=== PATIENT | female | born 1960 | race Caucasian/White ===

== ENCOUNTER → 2016-04-10 | Outpatient (REF) | payer BC | LOC: M LAB REF 12:24 | PROVIDERS: ATTEND Ophthalmology | DX: H02.834 Dermatochalasis of left upper eyelid (principal) ==

== ENCOUNTER 2017-05-26 09:03 | Day surgery (SDC) | payer BC ==
[2017-05-26] MEDS: NS 1,000 ML IV (09:22)
[2017-05-26] MEDS ORDERED: fentaNYL 100 MCG/2 ML INJECTION (J3010) As Ordered (09:58)
[2017-05-26] MEDS ORDERED: LIDOCAINE 2% INJ 100 MG/5 ML SDV (FOR ANES.) As Ordered (10:18)
[2017-05-26] MEDS ORDERED: PROPOFOL 200 MG/20 ML VIAL As Ordered ×2 (10:18→10:19)
== END 2017-05-26 11:26 | disposition home or self-care (01) ==
LOC: M OPP 09:03
DX: Z12.11 Encounter for screening for malignant neoplasm of colon (principal); D12.4 Benign neoplasm of descending colon; K64.0 First degree hemorrhoids; K57.30 Diverticulosis of large intestine without perforation or abscess without bleeding; R12 Heartburn; K31.89 Other diseases of stomach and duodenum; K21.9 Gastro-esophageal reflux disease without esophagitis; K58.9 Irritable bowel syndrome, unspecified; E27.1 Primary adrenocortical insufficiency; E78.5 Hyperlipidemia, unspecified; F17.210 Nicotine dependence, cigarettes, uncomplicated; Z87.19 Personal history of other diseases of the digestive system; Z88.5 Allergy status to narcotic agent; Z79.899 Other long term (current) drug therapy
CPT/HCPCS: 45380

== ENCOUNTER → 2018-01-10 | Outpatient (REF) | payer BC ==
[2018-01-10 19:06] LABS: APPEARANCE, URINE CLEAR (CLEAR); BACTERIA, URINE AUTO 1+ (NEGATIVE); BILIRUBIN, URINE AUTO NEGATIVE (NEGATIVE); BLOOD, URINE BLOOD 1+ (NEGATIVE); COLOR, URINE STRAW (YELLOW); GLUCOSE, URINE (UA) AUTO NEGATIVE (NEGATIVE); KETONE, URINE AUTO NEGATIVE (NEGATIVE); LEUKOCYTE ESTERASE, URINE AUTO 1+ (NEGATIVE); NITRITE, URINE AUTO NEGATIVE (NEGATIVE); PROTEIN, URINE AUTO NEGATIVE (NEGATIVE); RBC, URINE AUTO 8 /HPF (0-3); SPECIFIC GRAVITY URINE AUTO 1.011 (1.002-1.035); SQUAMOUS EPITHELIAL CELL UR AU 0 /HPF (0-6); UROBILINOGEN, URINE AUTO 0.2 mg/dL (0.0-2.0); WBC, URINE AUTO 0 /HPF (0-3)
== END ==
LOC: M LAB REF 16:25
DX: R35.1 Nocturia (principal)
CPT/HCPCS: 81001

== ENCOUNTER → 2018-01-14 | Outpatient (CLI) | payer BC ==
[2018-01-14 12:12] LABS: BASO # 0.1 10^3/uL (0.0-0.2); BASO % 0.4 % (0.0-1.0); EOS # 0.7 10^3/uL (0.0-0.50); EOS % 5.5 % (0.0-3.0); HEMATOCRIT 46.9 % (36.0-47.0); HEMOGLOBIN 16.1 g/dl (12.0-15.5); IMMATURE GRANULOCYTE % 0.3 % (0-3.0); LYMPH # 1.1 10^3/uL (1.5-4.5); LYMPH % 8.6 % (24.0-44.0); MEAN CORPUSCULAR HEMOGLOBIN 30.1 pg (27.0-33.0); MEAN CORPUSCULAR HGB CONC 34.3 g/dl (32.0-36.5); MEAN CORPUSCULAR VOLUME 87.7 fl (80.0-96.0); MONO # 0.6 10^3/uL (0.0-0.8); MONO % 4.3 % (0.0-5.0); NEUTROPHILS # 10.4 10^3/uL (1.8-7.7); NEUTROPHILS % 80.9 % (36.0-66.0); PLATELET COUNT, AUTOMATED 261 10^3/uL (150-450); RED BLOOD COUNT 5.35 10^6/uL (4.00-5.40); RED CELL DISTRIBUTION WIDTH 13.3 % (11.5-14.5); WHITE BLOOD COUNT 12.8 10^3/uL (4.0-10.0)
[2018-01-14 16:04] LABS: ALBUMIN 3.9 GM/DL (3.2-5.2); ALBUMIN/GLOBULIN RATIO 1.22 (1.00-1.93); ALKALINE PHOSPHATASE 140 U/L (45-117); ALT/SGPT 52 U/L (12-78); ANION GAP 13 MEQ/L (8-16); AST/SGOT 34 U/L (7-37); BILIRUBIN,TOTAL 0.5 MG/DL (0.2-1.0); BLOOD UREA NITROGEN 12 MG/DL (7-18); CALCIUM LEVEL 9.1 MG/DL (8.5-10.1); CARBON DIOXIDE LEVEL 22 MEQ/L (21-32); CHLORIDE LEVEL 102 MEQ/L (98-107); CORTISOL AM 4.5 UG/DL (4.3-22.4); CREATININE FOR GFR 0.79 MG/DL (0.55-1.30); FREE T3 3.3 PG/ML (2.2-4.0); FREE T4 1.51 NG/DL (0.76-1.46); GLOMERULAR FILTRATION RATE > 60.0 (>51); GLUCOSE, FASTING 115 MG/DL (70-100); IRON (FE) 53 UG/DL (50-170); POTASSIUM SERUM 4.1 MEQ/L (3.5-5.1); SODIUM LEVEL 137 MEQ/L (136-145); THYROID STIMULATING HORMONE 0.143 uIU/ML (0.358-3.740); TOTAL 25(OH) VITAMIN D 17.9 NG/ML (30.0-100.0); TOTAL PROTEIN 7.1 GM/DL (6.4-8.2)
== END ==
LOC: M LAB 11:21
DX: N39.9 Disorder of urinary system, unspecified (principal); E27.49 Other adrenocortical insufficiency; R53.1 Weakness; E03.9 Hypothyroidism, unspecified
CPT/HCPCS: 83540

== ENCOUNTER → 2018-05-03 | Outpatient (CLI) | payer BC ==
[~2018-05-03] MED LIST: ATOR1TAB21 PO; FLUD0.1T PO; HYDR-3291 PO; LEVO100T5 PO; OMEP10CASR PO; SYNT125T PO
--- NOTE | 2018-05-03 15:50 | ECGEPIP ---
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
== END ==
LOC: M EKG 12:18
PROVIDERS: ATTEND Nurse Practitioner Family
DX: Z01.810 Encounter for preprocedural cardiovascular examination (principal); R00.1 Bradycardia, unspecified

== ENCOUNTER 2018-05-10 07:34 | Day surgery (SDC) | payer BC ==
[~2018-05-10] VITALS: Ht 160 cm; Wt 70.2 kg
[~2018-05-10 07:34] MED LIST changes: +LR 1,000 ML IV ONE
[2018-05-10] MEDS ORDERED: LIDOCAINE 2% INJ 100 MG/5 ML SDV (FOR ANES.) As Ordered ONE (08:06)
[2018-05-10] MEDS ORDERED: PROPOFOL 200 MG/20 ML VIAL As Ordered ONE (08:06)
[2018-05-10] MEDS ORDERED: ROCURONIUM BROMIDE 50 MG/5 ML VIAL As Ordered ONE (08:06)
[2018-05-10] MEDS ORDERED: dexameTHASONE 4 MG/ML 1ML VIAL (J1100) As Ordered ONE (08:07)
[2018-05-10] MEDS ORDERED: fentaNYL 250 MCG/5 ML INJECTION (J3010) As Ordered ONE (08:07)
[2018-05-10] MEDS ORDERED: ONDANSETRON 4MG/2ML VIAL (J2405) As Ordered ONE (08:07)
[2018-05-10] MEDS ORDERED: MIDAZOLAM INJ 2 MG/2 ML VIAL (J2250) As Ordered ONE (08:07)
[2018-05-10] MEDS ORDERED: KETOROLAC 60 MG/2 ML VIAL (J1885) As Ordered ONE (08:07)
[2018-05-10] MEDS ORDERED: VASOPRESSIN INJ 20 UNITS/ML VIAL As Ordered ONE (09:47)
[2018-05-10] MEDS ORDERED: SCOPOLAMINE 1MG TRANSDERMAL PATCH As Ordered ONE (10:00)
[2018-05-10] MEDS ORDERED: ePHEDrine SULFATE 25 MG/5 ML(5MG/ML) SYRINGE As Ordered ONE (11:03)
[2018-05-10] MEDS ORDERED: PHENYLephrine HCL 500 MCG/5 ML (100MCG/ML) SYRINGE (J2370) As Ordered ONE (11:03)
[2018-05-10] MEDS: fentaNYL 100 MCG/2 ML INJECTION (J3010) IV PRN ×4 (11:30→11:47)
[2018-05-10] MEDS: PERCOCET 5MG/325MG TAB PO PRN ×2 (11:30→12:00)
[2018-05-10] MEDS ORDERED: PERCOCET 5MG/325MG TAB As Ordered ONE ×2 (11:31→11:57)
[2018-05-10] MEDS ORDERED: fentaNYL 100 MCG/2 ML INJECTION (J3010) As Ordered ONE (11:31)
[2018-05-10] MEDS ORDERED: LR 1,000 ML IV SCH (12:00)
[2018-05-10] MEDS ORDERED: HYDROMORPHONE HCL 0.5 MG/ 0.5 ML SYRINGE (J1170 PER 1) IV PRN (12:00)
[2018-05-10] MEDS ORDERED: NORCO, ANEXSIA 5/325MG TABLET (HYDROcodone/ACETAMINOPHEN) PO PRN (12:15)
[2018-05-10] MEDS ORDERED: IBUPROFEN 600 MG TAB PO PRN (12:15)
[2018-05-10 13:15] VITALS: BP 104/63
--- NOTE | 2018-05-11 11:16 | RO ---
DATE OF PROCEDURE: 05/10/2018 PREPROCEDURE DIAGNOSES: Symptomatic exposed mesh in two locations and overactive bladder symptoms. POSTPROCEDURE DIAGNOSES: Symptomatic exposed mesh in two locations and overactive bladder symptoms with suspicion of interstitial cystitis based on cystoscopy findings. PROCEDURE: Removal of two portions of exposed vaginal mesh by vaginal approach and cystourethroscopy. SURGEON: Dr. Sumi Cartagena RESERVOIR ENGINEERING ADVISOR: ANESTHESIA: General anesthesia by LMA. ESTIMATED BLOOD LOSS: BRIEF DESCRIPTION OF PROCEDURE AND FINDINGS: Denia was brought to the operating room where sufficient anesthesia was induced. She was prepped, draped and positioned in the usual sterile fashion with the bladder emptied and then the Ruperto retractor used to visualize the vagina. We did not use a weighted in this case. We did not want to put any extra tension on the tissues. We carefully visualized the two areas of exposed mesh. One was the upper anterior vagina and one was more or less at the apex of the vagina just shy of that and extending to the apex. We were able to palpate the mesh itself and grasp it with Allis clamps and then using a couple Allis clamps on the exposed mesh portion, we carefully trimmed back the vaginal epithelium and were able to then undermine it and trim the exposed mesh and remove the exposed mesh portion. There is a viable area of vaginal epithelium in-between the two exposure sites and we had made a conscious discussion and decision in the office to go ahead and just remove the exposed mesh and not disrupt any intact normal vaginal tissue if we could avoid it as we were readily able to do this. The tissues show some evidence the patient has been using her vaginal estrogen. With the exception of the inflammation right around the exposures, there is very good looking tissue there. We did resect back just the edges of those wounds because of course they needed to be refreshed but we did not need to trim back very much and we were able to undermine and then remove the mesh so it is well away from the area of the wound, and having removed the more cephalad area of mesh, we then worked on the more caudad area and then we were able to remove it too, and with the two areas of mesh exposed and excised and well back in some areas as much as 1 cm back from the skin edge but not as far in that medial section of vaginal epithelium that is still viable. I removed those areas of mesh. We when used #3-0 Monocryl in running stitches to close the two wounds. We did not have to hydrodissect. We made a conscious choice in this case not to use vasopressin. We did not want to disrupt any of the blood supply to these tissues and we were able to get purchase onto the actual mesh to dissect along it which gave us a good plane. With the two vaginal wounds closed and good approximation and hemostasis there without undue tension, we then proceeded to the cystourethroscopy. First scope we placed actually was not in good shape. The first picture shows how dim it was, just was not letting the light through so we went ahead and changed out for a new scope and having done so had a much better picture of the bladder. We were able to see normal jets of urine from both ureters, a normal trigone. She did not have any vaginal lesions. There was no evidence of vaginal mesh. With filling of the bladder, we did have a couple of areas sort of hypervascularity and vascular hemorrhage and this is not with a large amount of fluid in the bladder, so I really think this patient has some evidence of interstitial cystitis based on these findings. There is definitely no lesion and there was the typical inflammation one sees with a stone and chronic infection or chronic urinary tract infection (UTI) so I do not think that it is what it is. I think she does have interstitial cystis, but of course this visual appearance is not diagnostic. I did not see any William's lesions or anything that really would be pathognomonic, just that is my clinical impression. I also did not see any exposed mesh in the bladder. We were very careful to do a 360 survey of the bladder and of the urethra and saw no evidence of bladder mesh injury or difficulty and after this, the bladder was emptied and the procedure was ended. ESTIMATED BLOOD LOSS FOR THE PROCEDURE: 4 mL or less. FLUID REPLACEMENT: Crystalloid. COMPLICATIONS: None. SPECIMEN: We did send to two portions of mesh and those tiny areas of vaginal epithelium that we trimmed back we did not send. There did not appear to be any lesions there. There were no other specimen because we did not need to biopsy the bladder. CONDITION AND DISPOSITION: Denia tolerated the procedure well and was recovering in the recovery room in good condition.
== END 2018-05-10 13:25 | disposition home or self-care (01) ==
LOC: M SDC 07:34
PROVIDERS: ATTEND Obstetrics & Gynecology
DX: T83.721A Exposure of implanted vaginal mesh into vagina, initial encounter (principal); X58.XXXA Exposure to other specified factors, initial encounter; Y93.9 Activity, unspecified; Y92.9 Unspecified place or not applicable; Y99.9 Unspecified external cause status; E03.9 Hypothyroidism, unspecified; E27.2 Addisonian crisis; E78.00 Pure hypercholesterolemia, unspecified; K22.70 Barrett's esophagus without dysplasia; Z88.5 Allergy status to narcotic agent; Z79.899 Other long term (current) drug therapy; Z72.0 Tobacco use
CPT/HCPCS: 52000; 57295; 88300; J0690; J1100; J1885; J2250; J2370; J2405; J3010

== ENCOUNTER → 2018-08-05 | Outpatient (CLI) | payer BC ==
[~2018-08-05] MED LIST changes: -HYDR-3291 PO; +HYDR-4513 PO; -LR 1,000 ML IV ONE
--- NOTE | 2018-08-06 08:38 | REP ---
HISTORY: Pain. COMPARISON: None. There is minimal tricompartmental marginal osteophytosis. There is slight medial compartmental narrowing with asymmetric narrowing of the patellofemoral joint space. Calcifications are seen in the distal quadriceps tendon at the patellar attachment and within the proximal patellar tendon at its patellar attachment. This is suggestive of an enthesopathy. IMPRESSION: Chronic changes as described above. Electronically Signed by Anthony Beasley DO 08/06/2018 08:45 A
== END ==
LOC: M WUC 19:25
PROVIDERS: ATTEND Physician Assistant
DX: M25.761 Osteophyte, right knee (principal); M25.561 Pain in right knee

== ENCOUNTER → 2018-09-22 | Outpatient (CLI) | payer BC ==
[2018-09-22 13:44] LABS: HEMOGLOBIN 14.5 g/dl (12.0-15.5); MEAN CORPUSCULAR HEMOGLOBIN 30.7 pg (27.0-33.0); MEAN CORPUSCULAR VOLUME 93.2 fl (80.0-96.0); PLATELET COUNT, AUTOMATED 222 10^3/uL (150-450); RED BLOOD COUNT 4.72 10^6/uL (4.00-5.40)
[2018-09-22 14:09] LABS: ALBUMIN 3.9 GM/DL (3.2-5.2); ALT/SGPT 61 U/L (12-78); BILIRUBIN,TOTAL 0.3 MG/DL (0.2-1.0); BLOOD UREA NITROGEN 16 MG/DL (7-18); CARBON DIOXIDE LEVEL 26 MEQ/L (21-32); CHLORIDE LEVEL 106 MEQ/L (98-107); CREATININE FOR GFR 0.87 MG/DL (0.55-1.30); FREE T3 2.7 PG/ML (2.2-4.0); FREE T4 1.23 NG/DL (0.76-1.46); GLOMERULAR FILTRATION RATE > 60.0 (>51); GLUCOSE, FASTING 94 MG/DL (70-100); SODIUM LEVEL 140 MEQ/L (136-145); THYROID STIMULATING HORMONE 0.547 uIU/ML (0.358-3.740); TOTAL PROTEIN 6.7 GM/DL (6.4-8.2)
== END ==
LOC: M LAB 13:16
PROVIDERS: ATTEND Nurse Practitioner Family
DX: Z01.818 Encounter for other preprocedural examination (principal); E03.9 Hypothyroidism, unspecified

== ENCOUNTER 2018-09-27 14:00 | Emergency (ER) | payer BC ==
[~2018-09-27] VITALS: Ht 160 cm; Wt 71.4 kg
[2018-09-27] MEDS ORDERED: NS 1,000 ML IV SCH (15:35)
[2018-09-27 15:44] LABS: BASO % 0.1 % (0.0-1.0); EOS % 0.1 % (0.0-3.0); HEMATOCRIT 43.2 % (36.0-47.0); LYMPH # 0.9 10^3/uL (1.5-4.5); LYMPH % 9.4 % (24.0-44.0); MEAN CORPUSCULAR HEMOGLOBIN 30.5 pg (27.0-33.0); MEAN CORPUSCULAR HGB CONC 32.4 g/dl (32.0-36.5); MEAN CORPUSCULAR VOLUME 94.1 fl (80.0-96.0); MONO # 0.1 10^3/uL (0.0-0.8); MONO % 0.8 % (0.0-5.0); NEUTROPHILS # 8.5 10^3/uL (1.8-7.7); NEUTROPHILS % 89.2 % (36.0-66.0); PLATELET COUNT, AUTOMATED 177 10^3/uL (150-450); RED BLOOD COUNT 4.59 10^6/uL (4.00-5.40); WHITE BLOOD COUNT 9.5 10^3/uL (4.0-10.0)
[2018-09-27] MEDS ORDERED: IPRATROPIUM 0.5MG/ALBUTEROL 2.5MG INH SOL UD 3ML (DUONEB)(J7620) NEB ONE (15:45)
[2018-09-27 15:57] LABS: INR 0.98; PROTHROMBIN TIME 12.7 SECONDS (11.8-14.0)
[2018-09-27 15:59] LABS: D-DIMER QUANT 347.28 ng/ml (<500)
[2018-09-27 16:01] LABS: ALBUMIN 3.6 GM/DL (3.2-5.2); ALT/SGPT 68 U/L (12-78); BILIRUBIN,DIRECT 0.1 MG/DL (0.0-0.2); BILIRUBIN,TOTAL 0.6 MG/DL (0.2-1.0); BLOOD UREA NITROGEN 13 MG/DL (7-18); CALCIUM LEVEL 8.1 MG/DL (8.5-10.1); CARBON DIOXIDE LEVEL 26 MEQ/L (21-32); CHLORIDE LEVEL 107 MEQ/L (98-107); CK-MB VALUE MASS 1.6 NG/ML (<3.6); CPK CREATINE PHOSPHOKINASE 110 U/L (26-192); CREATININE FOR GFR 0.77 MG/DL (0.55-1.30); GLOMERULAR FILTRATION RATE > 60.0 (>51); GLUCOSE, FASTING 75 MG/DL (70-100); MB/CK RELATIVE INDEX 1.45 (< OR =4); NT-PRO BNP 61 PG/ML (<125); POTASSIUM SERUM 3.9 MEQ/L (3.5-5.1); SODIUM LEVEL 141 MEQ/L (136-145); TOTAL PROTEIN 6.1 GM/DL (6.4-8.2); TROPONIN I < 0.02 NG/ML (< 0.10)
[2018-09-27 16:12] LABS: VENOUS BASE EXCESS 0.3 (-2.0-2.0); VENOUS PARTIAL PRESSURE CO2 46.3 mmHg (38.0-50.0); VENOUS PARTIAL PRESSURE O2 31.2 mmHg (30.0-50.0); VENOUS PH 7.368 UNITS (7.330-7.430); VENOUS STANDARD HCO3 23.7 MEQ/L; VENOUS TOTAL CO2 27.5 MEQ/L (24.0-28.0)
--- NOTE | 2018-09-27 16:44 | REP ---
Chest x-ray: Two views. History: Dyspnea and cough. No comparison study. Findings: The lungs are symmetrically aerated and free of focal infiltrate. Heart is not enlarged. Pulmonary vasculature is not increased. Interstitial markings are somewhat prominent however diffusely and there are Trey B lines visible in the left base laterally. EKG electrodes and oxygen delivery tubing are seen. Slight fissural thickening is noted. Impression: Prominent interstitial pattern diffusely with Trey B lines. Normal heart size. Mild fissural thickening. No focal infiltrate. Electronically Signed by Angelo Mallory MD 09/27/2018 04:59 P
[2018-09-27 18:00] VITALS: BP 96/54
[2018-09-27] MEDS ORDERED: ACETAMINOPHEN 325 MG TAB PO ONE (18:00)
--- NOTE | 2018-09-28 03:37 | ECGEPIP ---
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
== END 2018-09-27 18:12 | disposition home or self-care (01) ==
LOC: EDBD 14:00 → M ED 14:00
DX: R06.02 Shortness of breath (principal); R53.81 Other malaise; R53.83 Other fatigue; E07.9 Disorder of thyroid, unspecified; K21.9 Gastro-esophageal reflux disease without esophagitis; Z86.711 Personal history of pulmonary embolism; Z79.899 Other long term (current) drug therapy; Z88.8 Allergy status to other drugs, medicaments and biological substances; F17.210 Nicotine dependence, cigarettes, uncomplicated

== ENCOUNTER → 2019-12-27 | Outpatient (CLI) | payer BC ==
[~2019-12-27] MED LIST changes: +HYDR-4468 PO; -HYDR-4513 PO
--- NOTE | 2020-01-01 10:55 | REP ---
RIGHT RIB SERIES HISTORY: Contusion. Anterior pain mid thorax. TECHNIQUE: Four views of the right ribs are performed. FINDINGS: No fracture or bone lesion is seen. A PA view of the chest demonstrates no acute infiltrate, pneumothorax, or pleural effusion. Heart and mediastinum are within normal limits. IMPRESSION: Negative right rib series. MTDD
== END ==
LOC: M WUC 16:42
PROVIDERS: ATTEND Physician Assistant
DX: S20.20XA Contusion of thorax, unspecified, initial encounter (principal); Z72.0 Tobacco use; X58.XXXA Exposure to other specified factors, initial encounter; Y92.9 Unspecified place or not applicable

== ENCOUNTER → 2020-07-22 | Outpatient (CLI) | payer BC ==
--- NOTE | 2020-07-22 14:05 | REP ---
INDICATION: CONTUSION. COMPARISON: Comparison radiographs of the left hip are from 20 Jul 2014.. TECHNIQUE: AP and frogleg views, three views presented. FINDINGS: There is [id number] femoroacetabular spurring consistent with osteoarthritis. There is tendon insertion site spurring on the greater trochanter and on the iliac crest. Femoral head is smooth and rounded. Mild superior joint space narrowing is seen. Radiographically, the findings are unchanged. IMPRESSION: Left hip osteoarthritis. Findings similar to the 2014 study. Some tendon insertion site spurring is also present. <Electronically signed by Ezra Mallory > 07/22/20 1211
--- NOTE | 2020-07-22 21:00 | REP ---
INDICATION: CONTUSION COMPARISON: None. TECHNIQUE: Frontal view of the chest with multiple views of the left hemithorax. FINDINGS: Frontal view of the chest demonstrates no acute cardiopulmonary process, contusion, effusion, or pneumothorax. Multiple views of the left hemithorax demonstrates no acute rib fracture/injury or pathology. IMPRESSION: Normal rib series. <Electronically signed by Jarrett Saldana > 07/22/20 1063
--- NOTE | 2020-07-22 21:10 | REP ---
INDICATION: CONTUSION COMPARISON: None. TECHNIQUE: AP, lateral, bilateral oblique views of the left elbow elbow. FINDINGS: [id number] degenerative changes are appreciated with subtle cortical irregularity and early spurring primarily involving the coronoid process and lateral humeral condyle. No acute fracture or dislocation. Anterior fat pad is normal in position without joint effusion. IMPRESSION: Degenerative changes. No evidence for acute fracture or dislocation. <Electronically signed by Jarrett Saldana > 07/22/20 1010
== END ==
LOC: M WUC 13:01
PROVIDERS: ATTEND Physician Assistant
DX: S20.212A Contusion of left front wall of thorax, initial encounter (principal); S50.02XA Contusion of left elbow, initial encounter; S70.02XA Contusion of left hip, initial encounter; X58.XXXA Exposure to other specified factors, initial encounter; Y92.9 Unspecified place or not applicable; M81.0 Age-related osteoporosis without current pathological fracture; M25.752 Osteophyte, left hip

== ENCOUNTER → 2020-08-19 | Outpatient (CLI) | payer BC ==
--- NOTE | 2020-08-19 11:20 | REP ---
INDICATION: PAIN COMPARISON: None. TECHNIQUE: AP and frog-lateral views of the left hip FINDINGS: Age-related changes include increased sclerosis to the acetabulum with joint space narrowing and marginal spurring/early osteophyte formation including small osteophyte along the inferior margin of the femoral head and enthesopathy along the femoral trochanters. No acute fracture or dislocation. Surrounding soft tissues are grossly normal. IMPRESSION: Moderate osteoarthritic degenerative changes to the left hip. <Electronically signed by Jarrett Saldana > 08/19/20 1115
== END ==
LOC: M WUC 11:05
PROVIDERS: ATTEND Physician Assistant
DX: M16.12 Unilateral primary osteoarthritis, left hip (principal)

== ENCOUNTER → 2021-04-07 | Outpatient (REF) | payer BC ==
[2021-04-07 12:44] LABS: APPEARANCE, URINE HAZY (CLEAR); BACTERIA, URINE AUTO 1+ (NEGATIVE); BILIRUBIN, URINE AUTO NEGATIVE (NEGATIVE); BLOOD, URINE BLOOD 2+ (NEGATIVE); COLOR, URINE YELLOW (YELLOW); GLUCOSE, URINE (UA) AUTO NEGATIVE (NEGATIVE); KETONE, URINE AUTO NEGATIVE (NEGATIVE); LEUKOCYTE ESTERASE, URINE AUTO 3+ (NEGATIVE); MUCUS, URINE SMALL (NEGATIVE); NITRITE, URINE AUTO NEGATIVE (NEGATIVE); PROTEIN, URINE AUTO NEGATIVE (NEGATIVE); RBC, URINE AUTO 5 /HPF (0-3); SPECIFIC GRAVITY URINE AUTO 1.018 (1.002-1.035); SQUAMOUS EPITHELIAL CELL UR AU 2 /HPF (0-6); UROBILINOGEN, URINE AUTO 0.2 mg/dL (0.0-2.0); WBC, URINE AUTO 37 /HPF (0-3)
== END ==
LOC: M LAB REF 12:20
PROVIDERS: ATTEND Obstetrics & Gynecology
DX: N39.0 Urinary tract infection, site not specified (principal)

== ENCOUNTER → 2021-05-10 | Outpatient (CLI) | payer BC | LOC: M LABSMTC 11:03 | PROVIDERS: ATTEND Anesthesiology | DX: Z20.828 Contact with and (suspected) exposure to other viral communicable diseases (principal); Z11.59 Encounter for screening for other viral diseases ==

== ENCOUNTER 2021-05-15 12:34 | Day surgery (SDC) | payer BC ==
[~2021-05-15] VITALS: Ht 160 cm; Wt 71.7 kg
[~2021-05-15 12:34] MED LIST changes: +LIDOCAINE 1% MDV 20ML VIAL SQ PRN; +LR 1,000 ML IV ONE; +PHENAZOPYRIDINE 100 MG TAB PO ONE
[2021-05-15] MEDS ORDERED: VASOPRESSIN INJ 20 UNITS/ML VIAL As Ordered ONE (15:24)
[2021-05-15] MEDS ORDERED: propofoL 200 MG/20 ML VIAL As Ordered ONE (15:51)
[2021-05-15] MEDS ORDERED: fentaNYL 100 MCG/2 ML INJECTION As Ordered ONE ×3 (15:51→17:47)
[2021-05-15] MEDS ORDERED: HYDROCORTISONE 100 MG/2 ML VIAL (J1720 PER 1) As Ordered ONE (15:51)
[2021-05-15] MEDS ORDERED: LIDOCAINE 2% 100MG/5ML SDV (FOR ANES.) As Ordered ONE (15:51)
[2021-05-15] MEDS ORDERED: MIDAZOLAM INJ 2MG/2ML VIAL (J2250 PER 1MG) As Ordered ONE (15:51)
[2021-05-15] MEDS ORDERED: dexameTHASONE 4 MG/ML 1ML VIAL (J1100 PER 1MG) As Ordered ONE (15:51)
[2021-05-15] MEDS ORDERED: ONDANSETRON 4MG/2ML VIAL As Ordered ONE (15:51)
[2021-05-15] MEDS ORDERED: ACETAMINOPHEN 1000MG 100ML IV BTL (OFIRMEV) (J0131 PER 10MG) As Ordered ONE (16:19)
[2021-05-15] MEDS: fentaNYL 100 MCG/2 ML INJECTION IV PRN ×4 (17:47→18:11)
[2021-05-15] MEDS ORDERED: ONDANSETRON 4MG/2ML VIAL IV PRN (18:10)
[2021-05-15] MEDS ORDERED: METOCLOPRAMIDE INJ 10MG/2ML VIAL (J2765 PER 1) IV PRN (18:10)
[2021-05-15] MEDS ORDERED: oxyCODONE 5MG TAB PO PRN (18:10)
[2021-05-15] MEDS ORDERED: LR 1,000 ML IV SCH (18:10)
[2021-05-15] MEDS ORDERED: KETOROLAC 30 MG/ML 1ML VIAL As Ordered ONE (18:18)
[2021-05-15] MEDS ORDERED: KETOROLAC 30 MG/ML 1ML VIAL IV SCH (18:35)
[2021-05-15 19:01] VITALS: BP 146/73
== END 2021-05-15 19:10 | disposition home or self-care (01) ==
LOC: M SDC 12:34
PROVIDERS: ATTEND Obstetrics & Gynecology
DX: T83.721A Exposure of implanted vaginal mesh into vagina, initial encounter (principal); E78.5 Hyperlipidemia, unspecified; E03.9 Hypothyroidism, unspecified; K21.9 Gastro-esophageal reflux disease without esophagitis; Z88.8 Allergy status to other drugs, medicaments and biological substances; Z79.899 Other long term (current) drug therapy
CPT/HCPCS: 57295; 88300; 93005; J0131; J1100; J1720; J1885; J2250; J2405; J3010

== ENCOUNTER → 2021-11-06 | Outpatient (CLI) | payer BC ==
[~2021-11-06] MED LIST changes: -LIDOCAINE 1% MDV 20ML VIAL SQ PRN; -LR 1,000 ML IV ONE; -PHENAZOPYRIDINE 100 MG TAB PO ONE
[2021-11-06 12:41] LABS: BASO # 0.1 10^3/uL (0.0-0.2); BASO % 0.4 % (0.0-1.0); EOS # 0.2 10^3/uL (0.0-0.5); EOS % 1.5 % (0.0-3.0); HEMATOCRIT 43.7 % (36.0-47.0); HEMOGLOBIN 14.1 g/dl (12.0-15.5); LYMPH # 1.8 10^3/uL (1.5-5.0); LYMPH % 12.4 % (24.0-44.0); MEAN CORPUSCULAR HEMOGLOBIN 30.1 pg (27.0-33.0); MEAN CORPUSCULAR HGB CONC 32.3 g/dl (32.0-36.5); MEAN CORPUSCULAR VOLUME 93.4 fl (80.0-96.0); MONO # 0.4 10^3/uL (0.0-0.8); MONO % 2.8 % (2.0-8.0); NEUTROPHILS # 11.6 10^3/uL (1.5-8.5); NEUTROPHILS % 82.4 % (36.0-66.0); PLATELET COUNT, AUTOMATED 270 10^3/uL (150-450); RED BLOOD COUNT 4.68 10^6/uL (4.00-5.40); WHITE BLOOD COUNT 14.1 10^3/uL (4.0-10.0)
[2021-11-06 13:19] LABS: ALBUMIN 4.1 GM/DL (3.2-5.2); ALT/SGPT 80 U/L (12-78); BILIRUBIN,TOTAL 0.5 MG/DL (0.2-1.0); BLOOD UREA NITROGEN 10 MG/DL (7-18); CALCIUM LEVEL 9.5 MG/DL (8.8-10.2); CARBON DIOXIDE LEVEL 27 MEQ/L (21-32); CHLORIDE LEVEL 103 MEQ/L (98-107); CHOLESTEROL LEVEL 277 MG/DL (<200); CHOLESTEROL RISK RATIO 7.102 (<5); CREATININE FOR GFR 0.76 MG/DL (0.55-1.30); FREE T3 2.3 PG/ML (2.2-4.0); FREE T4 1.01 NG/DL (0.76-1.46); GLOMERULAR FILTRATION RATE > 60.0 (>45); GLUCOSE, FASTING 95 MG/DL (70-100); HDL CHOLESTEROL 39 MG/DL (>40); LDL CHOLESTEROL 187 MG/DL (<100); NON-HDL-C 238 MG/DL; POTASSIUM SERUM 4.3 MEQ/L (3.5-5.1); SODIUM LEVEL 134 MEQ/L (136-145); TOTAL PROTEIN 6.5 GM/DL (6.4-8.2); TRIGLYCERIDES LEVEL 253 MG/DL (<150)
[2021-11-06 13:45] LABS: TOTAL 25(OH) VITAMIN D 79.1 NG/ML (30.0-100.0)
== END ==
LOC: M LAB 11:49
PROVIDERS: ATTEND Family Medicine
DX: E27.49 Other adrenocortical insufficiency (principal); E03.9 Hypothyroidism, unspecified; E55.9 Vitamin D deficiency, unspecified